=== PATIENT | male | born 1975 | race Caucasian/White ===

== ENCOUNTER 2017-02-16 21:55 | Emergency (ER) | payer MEDICAID ==
[~2017-02-16] VITALS: Ht 180.3 cm; Wt 76.0 kg
[2017-02-16 22:01] VITALS: BP 106/68
== END 2017-02-16 22:45 | disposition left against medical advice (07) ==
LOC: ED 22:20
DX: F10.20 Alcohol dependence, uncomplicated (principal); F11.20 Opioid dependence, uncomplicated; I10 Essential (primary) hypertension; F11.10 Opioid abuse, uncomplicated; Y90.9 Presence of alcohol in blood, level not specified
CPT/HCPCS: 99281

== ENCOUNTER 2017-05-05 04:10 | Emergency (ER) | payer MEDICAID ==
[~2017-05-05] VITALS: Ht 180.3 cm; Wt 70.4 kg
[2017-05-05] MEDS ORDERED: SODIUM CHLORIDE 0.9% 1,000 ML IV ONE (05:39)
[2017-05-05] MEDS ORDERED: ONDANSETRON 2MG/ML, 2ML ONE (05:55)
[2017-05-05] MEDS ORDERED: KETOROLAC 30 MG/1 ML ONE (05:55)
[2017-05-05] MEDS ORDERED: MORPHINE SULFATE 4 MG/ML, 1ML ONE (05:55)
[2017-05-05] MEDS ORDERED: MORPHINE SULFATE 4 MG/ML, 1ML IVPush PRN (06:00)
[2017-05-05] MEDS ORDERED: ONDANSETRON 2MG/ML, 2ML IVPush ONE (06:00)
[2017-05-05] MEDS ORDERED: KETOROLAC 30 MG/1 ML IVPush ONE (06:00)
[2017-05-05 06:24] VITALS: BP 135/96
[2017-05-05 06:38] LABS: BLOOD UREA NITROGEN 9 mg/dL (7-18)
== END 2017-05-05 08:04 | disposition home or self-care (01) ==
LOC: ED 05:06
DX: M94.0 Chondrocostal junction syndrome [Tietze] (principal); I10 Essential (primary) hypertension
CPT/HCPCS: 36415; 71010; 80048; 82040; 85025; 93005; 96361; 96374; 96375; 99285; J1885; J2405; J7030

== ENCOUNTER 2017-05-11 12:05 | Emergency (ER) | payer MEDICAID ==
[~2017-05-11] VITALS: Ht 180.3 cm; Wt 75.0 kg
[2017-05-11 14:59] VITALS: BP 103/72
== END 2017-05-11 15:46 | disposition home or self-care (01) ==
LOC: ED 15:41
DX: F10.229 Alcohol dependence with intoxication, unspecified (principal); I10 Essential (primary) hypertension
CPT/HCPCS: 36415; 70450; 80307; 99285

== ENCOUNTER 2017-05-12 01:03 | Emergency (ER) | payer MEDICAID ==
[~2017-05-12] VITALS: Ht 180.3 cm; Wt 78.0 kg
[2017-05-12 05:49] VITALS: BP 121/83
== END 2017-05-12 06:18 | disposition home or self-care (01) ==
LOC: ED 01:16
DX: F10.229 Alcohol dependence with intoxication, unspecified (principal); I10 Essential (primary) hypertension; W01.0XXA Fall on same level from slipping, tripping and stumbling without subsequent striking against object, initial encounter; Y93.89 Activity, other specified; Y92.410 Unspecified street and highway as the place of occurrence of the external cause; Y99.9 Unspecified external cause status
CPT/HCPCS: 70450

== ENCOUNTER 2017-05-12 18:57 | Emergency (ER) | payer MEDICAID ==
[~2017-05-12] VITALS: Ht 180.3 cm; Wt 69.6 kg
[2017-05-12] MEDS ORDERED: METOPROLOL TARTRATE 50 MG TABLET ONE (19:40)
[2017-05-12] MEDS ORDERED: METOPROLOL TARTRATE 50 MG TABLET PO ONE (20:00)
[2017-05-12 20:30] LABS: DAU SCREEN DISCLAIMER
[2017-05-12 20:32] LABS: BLOOD UREA NITROGEN 8 mg/dL (7-18)
[2017-05-12 20:35] LABS: ACETAMINOPHEN < 2 mcg/mL (10-30)
[2017-05-12 21:12] VITALS: BP 130/92
== END 2017-05-12 21:15 | disposition home or self-care (01) ==
LOC: ED 21:00
DX: F10.229 Alcohol dependence with intoxication, unspecified (principal); I10 Essential (primary) hypertension
CPT/HCPCS: 36415; 80048; 80307; 80329; 82040; 85025; 99284; G0480

== ENCOUNTER 2018-03-18 11:27 | Emergency (ER) | payer MEDICAID ==
[~2018-03-18] VITALS: Ht 180.3 cm; Wt 75.9 kg
[2018-03-18 11:35] VITALS: BP 152/100
[2018-03-18] MEDS ORDERED: KETOROLAC 30 MG/1 ML IM ONE (12:00)
[2018-03-18] MEDS ORDERED: DIAZEPAM 5 MG TABLET PO ONE (12:00)
== END 2018-03-18 12:46 | disposition home or self-care (01) ==
LOC: ED 12:35
DX: S50.02XA Contusion of left elbow, initial encounter (principal); I10 Essential (primary) hypertension; X50.1XXA Overexertion from prolonged static or awkward postures, initial encounter; Y93.89 Activity, other specified; Y92.89 Other specified places as the place of occurrence of the external cause; Y99.8 Other external cause status
CPT/HCPCS: 99284

== ENCOUNTER 2018-08-26 15:30 | Emergency (ER) | payer MEDICAID ==
[~2018-08-26] VITALS: Ht 177.8 cm; Wt 75.0 kg
[2018-08-26] MEDS ORDERED: ZIPRASIDONE 20 MG INJ IM ONE ×2 (15:38→16:00)
[2018-08-26 16:21] LABS: BASOPHILS # (AUTO) 0.03 x10^3/uL (0-0.1); BASOPHILS % (AUTO) 0 % (0-1); EOSINOPHILS # (AUTO) 0.04 x10^3/uL (0-0.4); EOSINOPHILS % (AUTO) 1 % (1-7); LYMPHOCYTES # (AUTO) 1.61 x10^3/uL (1-3.4); LYMPHOCYTES % (AUTO) 21 % (22-44); MD NO; MEAN CORPUSCULAR HEMOGLOBIN 30.2 pg (27.5-34.5); MEAN CORPUSCULAR HGB CONC 34.3 g/dL (33.2-36.2); MEAN CORPUSCULAR VOLUME 88.1 fL (81-97); MEAN PLATELET VOLUME 7.9 fL (7.4-10.4); MONOCYTES % (AUTO) 5 % (2-9); NEUTROPHILS # (AUTO) 5.79 x10^3/uL (1.8-6.8); NEUTROPHILS % (AUTO) 74 % (42-75); PLATELET COUNT 268 x10^3/uL (130-400); RED BLOOD COUNT 5.11 x10^6/uL (4.38-5.82); RED CELL DISTRIBUTION WIDTH 14.4 % (9.4-14.8)
[2018-08-26 16:32] LABS: ALBUMIN 3.9 g/dL (3.4-5.0); ANION GAP 10 mmol/L (5-15); CALCIUM 8.2 mg/dL (8.5-10.1); CHLORIDE 109 mmol/L (98-107); CREATININE 0.86 mg/dL (0.7-1.3)
[2018-08-26 16:36] LABS: SALICYLATE LEVEL 3.9 mg/dL (2.8-20.0)
[2018-08-26 16:38] LABS: ACETAMINOPHEN < 2 mcg/mL (10-30)
[2018-08-26 20:36] LABS: AMPHETAMINE SCREEN, URINE Negative (Negative); BARBITURATE SCREEN, URINE Negative (Negative); BENZODIAZEPINE SCREEN, URINE Negative (Negative); CANNABINOID SCREEN, URINE Negative (Negative); COCAINE SCREEN, URINE Negative (Negative); METHADONE SCREEN, URINE Negative (Negative); OPIATE SCREEN, URINE Negative (Negative)
[2018-08-27 00:38] VITALS: BP 132/76
== END 2018-08-27 05:34 | disposition home or self-care (01) ==
LOC: ED 18:34
DX: F10.229 Alcohol dependence with intoxication, unspecified (principal); I10 Essential (primary) hypertension; Y90.9 Presence of alcohol in blood, level not specified; Z72.9 Problem related to lifestyle, unspecified
CPT/HCPCS: 36415; 80048; 80307; 80329; 82040; 85025; 96372; 99284; J3486; G0480

== ENCOUNTER 2018-09-11 09:04 | Emergency (ER) | payer MEDICAID ==
[~2018-09-11] VITALS: Ht 180.3 cm; Wt 83.6 kg
[2018-09-11 10:54] LABS: AMPHETAMINE SCREEN, URINE Positive (Negative); BARBITURATE SCREEN, URINE Negative (Negative); BENZODIAZEPINE SCREEN, URINE Positive (Negative); CANNABINOID SCREEN, URINE Negative (Negative); COCAINE SCREEN, URINE Negative (Negative); METHADONE SCREEN, URINE Negative (Negative); OPIATE SCREEN, URINE Negative (Negative)
[2018-09-11 11:08] VITALS: BP 143/92
== END 2018-09-11 11:39 | disposition home or self-care (01) ==
LOC: ED 10:08
DX: S00.01XA Abrasion of scalp, initial encounter (principal); F10.129 Alcohol abuse with intoxication, unspecified; F15.10 Other stimulant abuse, uncomplicated; F13.10 Sedative, hypnotic or anxiolytic abuse, uncomplicated; I10 Essential (primary) hypertension; Z72.9 Problem related to lifestyle, unspecified; Y08.89XA Assault by other specified means, initial encounter; Y93.89 Activity, other specified; Y92.89 Other specified places as the place of occurrence of the external cause; Y99.8 Other external cause status; Y90.9 Presence of alcohol in blood, level not specified
CPT/HCPCS: 36415; 70450; 80307; 93005; 99285

== ENCOUNTER 2021-01-10 03:04 | Inpatient (IN) | payer MEDICAID ==
[~2021-01-10] VITALS: Ht 180.3 cm; Wt 80.7 kg
[2021-01-10 03:30] LABS: BASOPHILS % (AUTO) 0 % (0-1); EOSINOPHILS % (AUTO) 1 % (1-7); LYMPHOCYTES % (AUTO) 14 % (22-44); MEAN CORPUSCULAR HEMOGLOBIN 31.1 pg (27.5-34.5); MEAN CORPUSCULAR HGB CONC 34.3 g/dL (33.2-36.2); MEAN PLATELET VOLUME 8.6 fL (7.4-10.4); MONOCYTES % (AUTO) 8 % (2-9); NEUTROPHILS % (AUTO) 77 % (42-75); PLATELET COUNT 154 x10^3/uL (130-400); RED BLOOD COUNT 5.22 x10^6/uL (4.38-5.82); RED CELL DISTRIBUTION WIDTH 15.2 % (9.4-14.8)
[2021-01-10] MEDS ORDERED: ONDANSETRON 2MG/ML, 2ML IVPush ONE (03:30)
[2021-01-10] MEDS ORDERED: LORazepam 2 MG/ML, 1ML IVPush ONE (03:30)
[2021-01-10] MEDS ORDERED: SODIUM CHLORIDE 0.9% 1,000ML IVBOLUS ONE ×2 (03:30→04:30)
[2021-01-10 03:34] LABS: MD NO
[2021-01-10] MEDS ORDERED: ONDANSETRON 2MG/ML, 2ML ONE (03:35)
[2021-01-10] MEDS ORDERED: LORazepam 2 MG/ML, 1ML ONE (03:36)
[2021-01-10 03:40] LABS: ALANINE AMINOTRANSFERASE 193 U/L (12-78); ALBUMIN 3.6 g/dL (3.4-5.0); ANION GAP 8 mmol/L (5-15); CALCIUM 8.3 mg/dL (8.5-10.1); CHLORIDE 104 mmol/L (98-107); CREATININE 0.92 mg/dL (0.7-1.3)
[2021-01-10 03:44] LABS: ALKALINE PHOSPHATASE 157 U/L (45-117); BILIRUBIN,TOTAL 0.4 mg/dL (0.2-1.0); TOTAL PROTEIN 7.3 g/dL (6.4-8.2); TROPONIN I < 0.015 ng/mL (0.000-0.045)
--- NOTE | 2021-01-10 03:52 | NUR ---
PRECEPTOR RN: ENTERED ROOM WITH PRECEPTEE AND PT. SPO2 NOTED TO BE DROPPING BELOW 80% DESPITE O2 ADMIN VIA NC. PT. UNRESPONSIVE. NO PULSE NOTED AND CPR INITATED AND CODE BLUE CALLED(SEE CODE SHEET). PT. MOVED TO T3 FOR INTUBATION. REPORT TO HARLAN OSORIO.
[2021-01-10] MEDS ORDERED: ETOMIDATE 20 MG/10 ML ONE (04:09)
[2021-01-10] MEDS ORDERED: SUCCINYLCHOLINE 20 MG/ML, 10ML ONE (04:09)
[2021-01-10] MEDS ORDERED: CODE BLUE RESPONSE XX ONE (04:09)
--- NOTE | 2021-01-10 04:25 | NUR ---
SUMMARY NOTE, LATE ENTRY: UPON ARRIVAL TO ED EKG WAS COMPLETED AND PRESENTED TO DR. ALCARAZ WHO WAS IN TO EVAL PT. AND DISCUSS POC. CONTINUOUS PULSE OX, B/P, AND HEART MONITORS WERE PLACED ON ARRIVAL. PT. WAS NOTED TO BE IN SINUS TACH ON MONITOR AND ON EKG. PT. REPORTED RECENT RELAPSE WITH ETOH AFTER BEING SOBER FOR 6 MONTHS. LAST DRINK REPORTED TO BE 2200. PT. RECEIVED 4MG ZOFRAN IV EN ROUTE ACCOUNT COORDINATOR AND REPORTED IMPROVEMENT IN NAUSEA ON ARRIVAL. ON ARRIVAL PT. A&O X 4, STATED "MY LEGS FELT WEAK AND I WOKE UP WITH MY PANTS WET, I WENT OUT TO SMOKE A CIGARETTE AND I FELT WEAK SO I CALLED 911." NO TREMORS NOTED ON ASSESSMENT.
--- NOTE | 2021-01-10 04:27 | NUR ---
[address] AT 25CM AT THE LIP. PT MEDICATED PER DR ORDERS DURING PROCEDURE. PT CONFUSED AND TRYING TO GET OUT OF BED PRIOR TO ET TUBE AND MEDS.
[2021-01-10] MEDS ORDERED: PROMETHAZINE 25 MG/ML, 1ML IM PRN (04:30)
[2021-01-10] MEDS ORDERED: ETOMIDATE 20 MG/10 ML IVPush ONE (04:30)
[2021-01-10] MEDS ORDERED: MIDAZOLAM HCL 50 MG in SODIUM CHLORIDE 0.9% 40 ML IV PRN (04:30)
[2021-01-10] MEDS ORDERED: POLYETHYLENE GLYCOL 17 GM PACKET PO PRN (04:30)
[2021-01-10] MEDS ORDERED: hydrALAzine 20 MG/ML, 1ML IVPush PRN (04:30)
[2021-01-10] MEDS ORDERED: ONDANSETRON ODT 4 MG PO PRN (04:30)
[2021-01-10] MEDS ORDERED: SUCCINYLCHOLINE 20 MG/ML, 10ML IVPush ONE (04:30)
[2021-01-10] MEDS ORDERED: morphine SULFATE 10 MG/ML, 1ML IVPush PRN (04:30)
[2021-01-10] MEDS ORDERED: BISACODYL 10 MG SUPP PR PRN (04:30)
[2021-01-10] MEDS ORDERED: MIDAZOLAM 1 MG/ML, 5ML IVPush ONE (04:30)
[2021-01-10] MEDS ORDERED: DOCUSATE 100 MG CAPSULE PO PRN (04:30)
--- NOTE | 2021-01-10 04:37 | NUR ---
PT BITING ET TUBE, PT VERSED INCREASED PER PROVIDER VERBAL ORDER TO 7MG/HR VERSED
[2021-01-10] MEDS ORDERED: LISI-167 PO (04:44)
[2021-01-10] MEDS ORDERED: FENTANYL PF 100 MCG/2ML ONE (04:57)
[2021-01-10 04:59] LABS: MICROSCOPIC INDICATED
[2021-01-10] MEDS ORDERED: SODIUM CHLORIDE 0.9% 1,000 ML IV ONE (05:00)
[2021-01-10 05:02] LABS: FREE T4 (FREE THYROXINE) 0.86 ng/dL (0.76-1.46)
--- NOTE | 2021-01-10 05:02 | NUR ---
PROVIDER GAVE VERBAL ORDER FOR 100MCG OF FENTANYL TO BE PUSHED UP TO 2 TIMES WHILE PHAMACY MAKES FENTANYL DRIP. PT MEDICATED WITH 100MCG FENTANYL AT THIS TIME.
[2021-01-10] MEDS: FENTANYL PF 2,500 MCG in SODIUM CHLORIDE 0.9% 200 ML IV PRN ×2 (05:05→11:53)
[2021-01-10 05:06] LABS: AMPHETAMINE SCREEN, URINE Negative (Negative); BARBITURATE SCREEN, URINE Negative (Negative); BENZODIAZEPINE SCREEN, URINE Positive (Negative); CANNABINOID SCREEN, URINE Negative (Negative); COCAINE SCREEN, URINE Negative (Negative); METHADONE SCREEN, URINE Negative (Negative); OPIATE SCREEN, URINE Negative (Negative)
--- NOTE | 2021-01-10 06:00 | NUR ---
PT CARE TRANSFERED TO CCU BED [address] [facility]. PT WENT FROM ER TO CT THEN TO 543, PT TOLLERATED CT AND TRANSPORT WELL WITHOUT INCEDENT. RT, RN AND 2 TECHS TRANSPORTED PT TO CT AND 543
[2021-01-10] MEDS: MIDAZOLAM HCL 100 MG in SODIUM CHLORIDE 0.9% 80 ML IV PRN ×3 (06:11→20:41)
[2021-01-10] MEDS: THIAMINE 200 MG, FOLIC ACID 1 MG in D5%-0.9% NACL 1,000 ML IV SCH (06:27)
[2021-01-10] MEDS: HEPARIN 5,000 UNITS/ML, 1ML SQ SCH ×3 (06:27→22:50)
[2021-01-10] MEDS ORDERED: PROPOFOL 100 ML IV PRN ×2 (06:30→08:00)
[2021-01-10] MEDS ORDERED: LIDOCAINE-MPF 1%, 2ML ENDO PRN (08:00)
[2021-01-10] MEDS ORDERED: PHARMACY MAY ADJ FOR RENAL FX MC SCH (08:00)
[2021-01-10] MEDS: FAMOTIDINE 20 MG/2 ML IVPush SCH ×2 (08:29→20:41)
[2021-01-10] MEDS: FENTANYL PF 100 MCG/2ML IVPush PRN ×2 (11:40→13:02)
[2021-01-10] MEDS ORDERED: EPINEPHRINE SYRINGE 0.1 MG/ML, 10ML ONE (21:00)
[2021-01-10 23:31] VITALS: BP 110/67
[2021-01-11 04:37] LABS: BASOPHILS % (AUTO) 1 % (0-1); EOSINOPHILS % (AUTO) 2 % (1-7); LYMPHOCYTES % (AUTO) 21 % (22-44); MEAN CORPUSCULAR HEMOGLOBIN 31.1 pg (27.5-34.5); MEAN CORPUSCULAR HGB CONC 33.5 g/dL (33.2-36.2); MONOCYTES % (AUTO) 5 % (2-9); NEUTROPHILS % (AUTO) 71 % (42-75); PLATELET COUNT 114 x10^3/uL (130-400); RED BLOOD COUNT 4.24 x10^6/uL (4.38-5.82); RED CELL DISTRIBUTION WIDTH 15.9 % (9.4-14.8)
[2021-01-11 04:38] LABS: MD NO
[2021-01-11 04:42] LABS: ALBUMIN 2.6 g/dL (3.4-5.0); ANION GAP 5 mmol/L (5-15); CALCIUM 8.1 mg/dL (8.5-10.1); CHLORIDE 109 mmol/L (98-107)
[2021-01-11 04:48] LABS: ALANINE AMINOTRANSFERASE 138 U/L (12-78); ALKALINE PHOSPHATASE 131 U/L (45-117); CHOL/HDL RATIO 21.2; CHOLESTEROL, TOTAL 191 mg/dL (140-239); CREATININE 0.89 mg/dL (0.7-1.3); HDL CHOL % 5 % (26-37); HDL CHOLESTEROL (DIRECT) 9 mg/dL (40-60); TOTAL PROTEIN 5.8 g/dL (6.4-8.2); TRIGLYCERIDES 852 mg/dL (50-200)
[2021-01-11] MEDS: THIAMINE 200 MG, FOLIC ACID 1 MG in D5%-0.9% NACL 1,000 ML IV SCH (04:54)
[2021-01-11] MEDS: HEPARIN 5,000 UNITS/ML, 1ML SQ SCH ×3 (06:17→22:36)
[2021-01-11] MEDS: FAMOTIDINE 20 MG/2 ML IVPush SCH ×2 (09:40→20:24)
[2021-01-11] MEDS: MIDAZOLAM HCL 100 MG in SODIUM CHLORIDE 0.9% 80 ML IV PRN (09:40)
[2021-01-11] MEDS: FENTANYL PF 1,000 MCG in SODIUM CHLORIDE 0.9% 80 ML IV PRN ×3 (11:02→23:02)
[2021-01-11] MEDS: ACETAMINOPHEN 325 MG TABLET PO PRN (13:33)
[2021-01-12] MEDS: MIDAZOLAM HCL 100 MG in SODIUM CHLORIDE 0.9% 80 ML IV PRN (04:05)
[2021-01-12] MEDS: THIAMINE 200 MG, FOLIC ACID 1 MG in D5%-0.9% NACL 1,000 ML IV SCH (04:05)
[2021-01-12 04:36] LABS: BASOPHILS % (AUTO) 0 % (0-1); EOSINOPHILS % (AUTO) 3 % (1-7); LYMPHOCYTES % (AUTO) 15 % (22-44); MEAN CORPUSCULAR HGB CONC 33.4 g/dL (33.2-36.2); MEAN PLATELET VOLUME 8.6 fL (7.4-10.4); MONOCYTES % (AUTO) 7 % (2-9); NEUTROPHILS % (AUTO) 75 % (42-75); PLATELET COUNT 113 x10^3/uL (130-400); RED BLOOD COUNT 4.06 x10^6/uL (4.38-5.82); RED CELL DISTRIBUTION WIDTH 15.6 % (9.4-14.8)
[2021-01-12 04:37] LABS: MD NO
[2021-01-12] MEDS: FENTANYL PF 1,000 MCG in SODIUM CHLORIDE 0.9% 80 ML IV PRN (05:09)
[2021-01-12] MEDS: HEPARIN 5,000 UNITS/ML, 1ML SQ SCH ×3 (05:11→21:52)
[2021-01-12 07:26] LABS: ALANINE AMINOTRANSFERASE 108 U/L (12-78); ALBUMIN 2.6 g/dL (3.4-5.0); ANION GAP 9 mmol/L (5-15); CHLORIDE 109 mmol/L (98-107); CREATININE 0.96 mg/dL (0.7-1.3)
[2021-01-12 07:28] LABS: ALKALINE PHOSPHATASE 121 U/L (45-117); BILIRUBIN,TOTAL 0.8 mg/dL (0.2-1.0); TOTAL PROTEIN 6.1 g/dL (6.4-8.2); TRIGLYCERIDES 663 mg/dL (50-200)
[2021-01-12] MEDS: DEXMEDETOMIDINE 400 MCG in SODIUM CHLORIDE 0.9% 96 ML IV PRN ×2 (09:26→13:02)
[2021-01-12] MEDS: FAMOTIDINE 20 MG/2 ML IVPush SCH ×2 (09:37→20:05)
[2021-01-12] MEDS: ACETAMINOPHEN 325 MG TABLET PO PRN ×2 (09:52→20:56)
--- NOTE | 2021-01-12 10:51 | NUR ---
Tube Feed:Promote 65 ml/hr on propofol, 75 ml/hr off propofol Addendum: 01/12/21 at [address] Amended: Links added.
[2021-01-12] MEDS: CEFTRIAXONE PMX 1GM/50ML 50 ML IV SCH (10:52)
[2021-01-12] MEDS: METRONIDAZOLE PMX 500MG/100ML 100 ML IV SCH ×2 (11:42→20:05)
[2021-01-13] MEDS: ACETAMINOPHEN 325 MG TABLET PO PRN ×2 (03:26→17:58)
[2021-01-13] MEDS: METRONIDAZOLE PMX 500MG/100ML 100 ML IV SCH ×3 (03:27→19:29)
[2021-01-13] MEDS: DEXMEDETOMIDINE 400 MCG in SODIUM CHLORIDE 0.9% 96 ML IV PRN ×4 (04:58→19:33)
[2021-01-13] MEDS: THIAMINE 200 MG, FOLIC ACID 1 MG in D5%-0.9% NACL 1,000 ML IV SCH (04:59)
[2021-01-13 05:16] LABS: BASOPHILS % (AUTO) 0 % (0-1); EOSINOPHILS % (AUTO) 1 % (1-7); LYMPHOCYTES % (AUTO) 7 % (22-44); MEAN CORPUSCULAR HEMOGLOBIN 30.8 pg (27.5-34.5); MEAN CORPUSCULAR HGB CONC 33.3 g/dL (33.2-36.2); MEAN PLATELET VOLUME 8.6 fL (7.4-10.4); MONOCYTES % (AUTO) 7 % (2-9); NEUTROPHILS % (AUTO) 86 % (42-75); PLATELET COUNT 137 x10^3/uL (130-400); RED BLOOD COUNT 4.19 x10^6/uL (4.38-5.82)
[2021-01-13 05:18] LABS: INTERNATIONAL NORMALIZED RATIO 1.23 (0.93-1.1); PROTHROMBIN TIME 13.1 Seconds (9.6-11.5)
[2021-01-13 05:21] LABS: ALBUMIN 2.5 g/dL (3.4-5.0); ANION GAP 5 mmol/L (5-15); CALCIUM 8.6 mg/dL (8.5-10.1); CHLORIDE 105 mmol/L (98-107)
[2021-01-13 05:25] LABS: ALANINE AMINOTRANSFERASE 77 U/L (12-78); ALKALINE PHOSPHATASE 119 U/L (45-117); BILIRUBIN,TOTAL 1.1 mg/dL (0.2-1.0); CREATININE 0.73 mg/dL (0.7-1.3); TOTAL PROTEIN 6.6 g/dL (6.4-8.2); TRIGLYCERIDES 437 mg/dL (50-200)
[2021-01-13] MEDS: HEPARIN 5,000 UNITS/ML, 1ML SQ SCH ×2 (05:45→15:13)
[2021-01-13 05:53] LABS: MD SCAN
[2021-01-13] MEDS: FAMOTIDINE 20 MG/2 ML IVPush SCH ×2 (08:25→20:02)
[2021-01-13] MEDS ORDERED: FUROSEMIDE 40 MG/4 ML IV SCH (09:00)
[2021-01-13] MEDS: CEFTRIAXONE PMX 1GM/50ML 50 ML IV SCH (10:18)
[2021-01-13] MEDS ORDERED: ZIPRASIDONE 20 MG INJ IM PRN (10:30)
[2021-01-13] MEDS: QUETIAPINE 25MG TABLET PO SCH ×2 (10:36→17:58)
[2021-01-13] MEDS: FENTANYL PF 100 MCG/2ML IVPush PRN ×4 (19:32→20:12)
[2021-01-14] MEDS: HEPARIN 5,000 UNITS/ML, 1ML SQ SCH ×3 (00:04→16:07)
[2021-01-14] MEDS: QUETIAPINE 25MG TABLET PO SCH (02:30)
[2021-01-14 04:48] LABS: BASOPHILS % (AUTO) 0 % (0-1); EOSINOPHILS % (AUTO) 2 % (1-7); LYMPHOCYTES % (AUTO) 12 % (22-44); MEAN CORPUSCULAR HEMOGLOBIN 31.1 pg (27.5-34.5); MEAN CORPUSCULAR HGB CONC 33.5 g/dL (33.2-36.2); MEAN PLATELET VOLUME 8.8 fL (7.4-10.4); MONOCYTES % (AUTO) 9 % (2-9); NEUTROPHILS % (AUTO) 77 % (42-75); PLATELET COUNT 165 x10^3/uL (130-400); RED BLOOD COUNT 4.36 x10^6/uL (4.38-5.82); RED CELL DISTRIBUTION WIDTH 15.2 % (9.4-14.8)
[2021-01-14 04:55] LABS: MD NO
[2021-01-14] MEDS: THIAMINE 200 MG, FOLIC ACID 1 MG in D5%-0.9% NACL 1,000 ML IV SCH (05:10)
[2021-01-14] MEDS: METRONIDAZOLE PMX 500MG/100ML 100 ML IV SCH ×3 (05:10→20:13)
[2021-01-14 09:08] VITALS: BP 123/81
[2021-01-14] MEDS: CEFTRIAXONE PMX 1GM/50ML 50 ML IV SCH (11:12)
[2021-01-14] MEDS: OXYcodone IR 5MG TABLET PO PRN ×2 (12:48→21:31)
[2021-01-14 13:27] VITALS: BP 117/74
[2021-01-14 19:49] VITALS: BP 147/98
[2021-01-14] MEDS: ACETAMINOPHEN 325 MG TABLET PO PRN (21:29)
[2021-01-15] MEDS: HEPARIN 5,000 UNITS/ML, 1ML SQ SCH ×4 (00:06→23:51)
[2021-01-15] MEDS: ONDANSETRON 2MG/ML, 2ML IVPush PRN ×3 (00:09→11:59)
[2021-01-15 00:56] VITALS: BP 137/88
[2021-01-15] MEDS: METRONIDAZOLE PMX 500MG/100ML 100 ML IV SCH ×3 (03:35→20:16)
[2021-01-15] MEDS: ACETAMINOPHEN 325 MG TABLET PO PRN ×3 (03:35→21:28)
[2021-01-15] MEDS: THIAMINE 200 MG, FOLIC ACID 1 MG in D5%-0.9% NACL 1,000 ML IV SCH (05:44)
[2021-01-15 05:52] LABS: ANION GAP 6 mmol/L (5-15); CALCIUM 8.4 mg/dL (8.5-10.1); CHLORIDE 102 mmol/L (98-107)
[2021-01-15 06:52] VITALS: BP 144/90
[2021-01-15] MEDS ORDERED: POTASSIUM CHLORIDE 20 MEQ TAB.ER.PRT PO SCH (08:00)
[2021-01-15 09:12] VITALS: BP 155/94
[2021-01-15 09:43] LABS: TROPONIN I < 0.015 ng/mL (0.000-0.045)
[2021-01-15] MEDS: CEFTRIAXONE PMX 1GM/50ML 50 ML IV SCH (11:07)
[2021-01-15 12:15] VITALS: BP 149/99
[2021-01-15] MEDS ORDERED: MAALOX/HYOSCYAMINE/LIDOCAINE 45 ML BTL PO ONE (13:30)
[2021-01-15] MEDS: OXYcodone IR 5MG TABLET PO PRN ×2 (15:36→21:30)
[2021-01-15 15:49] LABS: TROPONIN I < 0.015 ng/mL (0.000-0.045)
[2021-01-15 18:52] VITALS: BP 138/94
[2021-01-15] MEDS: MELATONIN 5 MG TABLET PO PRN ×2 (20:17→23:51)
[2021-01-15 21:40] LABS: TROPONIN I < 0.015 ng/mL (0.000-0.045)
[2021-01-16 02:00] VITALS: BP 150/104
[2021-01-16] MEDS: METRONIDAZOLE PMX 500MG/100ML 100 ML IV SCH ×2 (05:30→11:53)
[2021-01-16] MEDS: OXYcodone IR 5MG TABLET PO PRN (05:36)
[2021-01-16 05:39] LABS: ANION GAP 5 mmol/L (5-15); CALCIUM 8.5 mg/dL (8.5-10.1); CHLORIDE 106 mmol/L (98-107)
[2021-01-16 05:43] LABS: CREATININE 0.62 mg/dL (0.7-1.3); TRIGLYCERIDES 242 mg/dL (50-200)
[2021-01-16 06:35] VITALS: BP 149/87
[2021-01-16] MEDS: THIAMINE 200 MG, FOLIC ACID 1 MG in D5%-0.9% NACL 1,000 ML IV SCH (06:54)
[2021-01-16] MEDS: HEPARIN 5,000 UNITS/ML, 1ML SQ SCH ×2 (09:01→15:54)
[2021-01-16] MEDS: CEFTRIAXONE PMX 1GM/50ML 50 ML IV SCH (10:41)
[2021-01-16 12:35] VITALS: BP 146/97
[2021-01-16] MEDS ORDERED: AMOX1TAB61 PO (13:28)
[2021-01-16] MEDS: ACETAMINOPHEN 325 MG TABLET PO PRN (14:26)
== END 2021-01-16 16:30 | disposition home or self-care (01) | DRG 208 ==
LOC: ED 03:50 → EDIP 04:36 → CCU 05:51 → 4NE 01-14 09:00 → 5SO 01-15 11:47 → DCLOUNGE 01-16 16:14
PROVIDERS: ADMIT Internal Medicine; ATTEND Internal Medicine
PROC: 0BH17EZ Insertion of Endotracheal Airway into Trachea, Via Natural or Artificial Opening (ICD-10-PCS; principal; 2021-01-10)
PROC: 5A1945Z Respiratory Ventilation, 24-96 Consecutive Hours (ICD-10-PCS; 2021-01-10)
DX: J96.01 Acute respiratory failure with hypoxia (principal); G93.41 Metabolic encephalopathy; I46.9 Cardiac arrest, cause unspecified; J69.0 Pneumonitis due to inhalation of food and vomit; F10.231 Alcohol dependence with withdrawal delirium; G40.901 Epilepsy, unspecified, not intractable, with status epilepticus; G93.89 Other specified disorders of brain; I10 Essential (primary) hypertension; K21.9 Gastro-esophageal reflux disease without esophagitis; K70.10 Alcoholic hepatitis without ascites; E78.1 Pure hyperglyceridemia; E86.0 Dehydration; F12.90 Cannabis use, unspecified, uncomplicated; F43.10 Post-traumatic stress disorder, unspecified; Z79.899 Other long term (current) drug therapy; Z79.891 Long term (current) use of opiate analgesic; Z79.01 Long term (current) use of anticoagulants; Z88.8 Allergy status to other drugs, medicaments and biological substances
CPT/HCPCS: 36415; 36600; 74018; 96374; 96375; 99285; J7042; 70450; 71045; 80048; 80053; 80061; 80307; 80320; 81001; 82803; 83036; 83690; 83735; 84100; 84439; 84443; 84478; 84484; 85025; 85610; 87070; 87081; 87205; 93005; 94002; 94003; G0378; J0696; J1644; J1940; J2250; J2405; J2704; J3010; J3411; J3486; J7030; G0480; J0330

== ENCOUNTER 2021-03-10 10:46 | Emergency (ER) | payer MEDICAID ==
[~2021-03-10] VITALS: Ht 180.3 cm; Wt 80.0 kg
[~2021-03-10 10:46] MED LIST: AMOX1TAB61 PO; LISI-167 PO
--- NOTE | 2021-03-10 11:11 | NUR ---
PATIENT BIB EMS WITH CHIEF C/O ETOH. PER EMS PATIENT HAS BEEN DRINKING A PINT OF VODKA AND A TALL CAN OF BEER EVERYDAY FOR THE LAST WEEK. PATIENT SEEN YESTERDAY AT [facility] FOR THE SAME. PATIENT 84% ON RA WHEN EMS SHOWED UP, PLACED ON 2 LPM NC AND PATIENT UP TO 99%. VSS EN ROUTE, GIVEN 4 MG PO ZOFRAN EN ROUTE. UPON ASSESMENT PATIENT REPORTS HE HAS BEEN ON A BINGE OF DRINKING ALCOHOL FOR THE LAST WEEK, DRINKING 1 PINT OF VODKA PER DAY. DENIES SI/HI, NO OTHER COMPLAINTS. A&O, CONNECTED TO ALL MONITORS, VSS, SIDE RAILS UP X2, CALL LIGHT WITHIN REACH.
--- NOTE | 2021-03-10 11:24 | NUR ---
SEIZURE PRECAUTIONS IN PLACE.
[2021-03-10 12:04] VITALS: BP 120/76
== END 2021-03-10 13:02 | disposition home or self-care (01) ==
LOC: ED 11:37
DX: F10.229 Alcohol dependence with intoxication, unspecified (principal); I10 Essential (primary) hypertension; F17.200 Nicotine dependence, unspecified, uncomplicated; Y90.0 Blood alcohol level of less than 20 mg/100 ml
CPT/HCPCS: 99283

== ENCOUNTER 2021-03-25 15:25 | Emergency (ER) | payer MEDICAID ==
[~2021-03-25] VITALS: Ht 180.3 cm; Wt 80.0 kg
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
[2021-03-25 16:40] VITALS: BP 94/61
--- NOTE | 2021-03-25 16:41 | NUR ---
TASK RN NOTE: MONITORING DEVICES ATTACHED TO PT AGAIN AFTER HE DC'ED HIS IV, NC, BP CUFF, SPO2 AND CARDIAC MONITORING. PT APOLOGETIC. PT REORIENTED TO SURROUNDINGS AND ENCOURAGED BY RN TO REST.
--- NOTE | 2021-03-25 16:58 | NUR ---
PT LEFT AMA STATED "I JUST NEED TO GET OUT OF HERE BACK TO MY HOMIES". AMA PAPER SIGNED & IN CHART. PT WALKED TO ER CANOPY
== END 2021-03-25 17:00 | disposition left against medical advice (07) ==
LOC: ED 15:33
DX: S09.90XA Unspecified injury of head, initial encounter (principal); F10.120 Alcohol abuse with intoxication, uncomplicated; M54.2 Cervicalgia; R11.0 Nausea; I10 Essential (primary) hypertension; F17.210 Nicotine dependence, cigarettes, uncomplicated; W01.0XXA Fall on same level from slipping, tripping and stumbling without subsequent striking against object, initial encounter; Y93.89 Activity, other specified; Y92.89 Other specified places as the place of occurrence of the external cause; Y99.8 Other external cause status; Y90.0 Blood alcohol level of less than 20 mg/100 ml
CPT/HCPCS: 70450; 72125; 99406

== ENCOUNTER 2021-04-19 15:04 | Emergency (ER) | payer MEDICAID ==
[~2021-04-19] VITALS: Ht 180.3 cm; Wt 79.0 kg
[2021-04-19 16:03] LABS: ALBUMIN 3.6 g/dL (3.4-5.0); ANION GAP 6 mmol/L (5-15); CALCIUM 8.6 mg/dL (8.5-10.1); CHLORIDE 105 mmol/L (98-107); CREATININE 0.63 mg/dL (0.7-1.3)
[2021-04-19 16:24] LABS: BASOPHILS % (AUTO) 1 % (0-1); EOSINOPHILS % (AUTO) 0 % (1-7); LYMPHOCYTES % (AUTO) 37 % (22-44); MEAN CORPUSCULAR HGB CONC 34.2 g/dL (33.2-36.2); MEAN PLATELET VOLUME 8.3 fL (7.4-10.4); MONOCYTES % (AUTO) 8 % (2-9); NEUTROPHILS % (AUTO) 54 % (42-75); PLATELET COUNT 308 x10^3/uL (130-400); RED BLOOD COUNT 5.18 x10^6/uL (4.38-5.82); RED CELL DISTRIBUTION WIDTH 15.2 % (9.4-14.8)
--- NOTE | 2021-04-19 16:32 | NUR ---
mathematical engineering technician: Pt to room from lobby at this time.
[2021-04-19 17:19] VITALS: BP 168/117
[2021-04-19] MEDS ORDERED: SULFAMETH./TRIMETHOPRIM DS 800MG/160MG TABLET ONE (17:40)
[2021-04-19] MEDS ORDERED: DIPH,PERTUSS(ACELL),TET VAC/PF 0.5 ML IM-VACC ONE ×2 (17:41→18:00)
[2021-04-19] MEDS ORDERED: NEOSPORIN OINT. PKT 1 PACKET ONE ×2 (17:55→18:39)
[2021-04-19] MEDS ORDERED: SULFAMETH./TRIMETHOPRIM DS 800MG/160MG TABLET PO ONE (18:00)
--- NOTE | 2021-04-19 18:15 | NUR ---
DISCHARGE INSTRUCTIONS REVIEWED WITH PT. ALL QUESTIONS ANSWERED AT THIS TIME.
== END 2021-04-19 18:47 | disposition home or self-care (01) ==
LOC: ED 15:34
DX: S60.511A Abrasion of right hand, initial encounter (principal); F10.139 Alcohol abuse with withdrawal, unspecified; I10 Essential (primary) hypertension; Y90.0 Blood alcohol level of less than 20 mg/100 ml; V00.131A Fall from skateboard, initial encounter; Y93.51 Activity, roller skating (inline) and skateboarding; Y92.410 Unspecified street and highway as the place of occurrence of the external cause; Y99.8 Other external cause status
CPT/HCPCS: 36415; 80048; 82040; 85025; 90471; 90715

== ENCOUNTER 2021-04-30 12:35 | Emergency (ER) | payer MEDICAID ==
[~2021-04-30] VITALS: Ht 172.7 cm; Wt 80.0 kg
--- NOTE | 2021-04-30 12:48 | NUR ---
tech ed/woodshop teacher is at the bedside for assessment
[2021-04-30 13:08] LABS: BASOPHILS % (AUTO) 1 % (0-1); EOSINOPHILS % (AUTO) 1 % (1-7); LYMPHOCYTES % (AUTO) 34 % (22-44); MEAN CORPUSCULAR HEMOGLOBIN 32.5 pg (27.0-34.8); MEAN CORPUSCULAR HGB CONC 34.6 g/dL (33.2-36.2); MEAN PLATELET VOLUME 8.7 fL (7.4-10.4); MONOCYTES % (AUTO) 10 % (2-9); NEUTROPHILS % (AUTO) 55 % (42-75); PLATELET COUNT 309 x10^3/uL (130-400); RED BLOOD COUNT 4.93 x10^6/uL (3.82-5.82); RED CELL DISTRIBUTION WIDTH 15.2 % (9.4-14.8)
--- NOTE | 2021-04-30 13:11 | NUR ---
FIRST CONTACT WITH PATIENT: O2 DROPPING TO 84%, PATIENT PLACED ON 2 LPM NC, O2 SATURATION UP TO 96%, CONNECTED TO MOISTURE TESTER, VSS, ANGY, PATIENT LAYING IN GURNEY WITH EYES CLOSED, SIDE RAILS UP X2.
[2021-04-30 13:12] LABS: ALANINE AMINOTRANSFERASE 38 U/L (12-78); ALBUMIN 3.7 g/dL (3.4-5.0); ANION GAP 8 mmol/L (5-15); CHLORIDE 110 mmol/L (98-107); CREATININE 0.68 mg/dL (0.55-1.3); SALICYLATE LEVEL 2.9 mg/dL (2.8-20.0)
[2021-04-30 13:16] LABS: ALKALINE PHOSPHATASE 98 U/L (45-117); BILIRUBIN,TOTAL 0.1 mg/dL (0.2-1.0); TOTAL PROTEIN 7.5 g/dL (6.4-8.2)
--- NOTE | 2021-04-30 13:35 | NUR ---
PATIENT LAYING IN GURNEY, PULLED OFF PULSE OX AND NASAL CANNULA, OTHER VSS, RESP EVEN AND UNLABORED, SIDE RAILS UP X2, CALL LIGHT WITHIN REACH.
--- NOTE | 2021-04-30 14:20 | NUR ---
I AM ASSUMING CARE OF THIS PT FROM MICHELLE (rn) AT THIS TIME. SBAR WAS COMPLETED AT THE BEDSIDE. I AM FAMILIAR W THIS PT, I CHECKED HIM IN FROM EMS.
[2021-04-30] MEDS ORDERED: LIDOCAINE-MPF 1%, 5ML ONE (14:30)
--- NOTE | 2021-04-30 14:30 | NUR ---
FORTUNATO X8 PLACED IN POSTERIOR SCALP
--- NOTE | 2021-04-30 14:35 | NUR ---
C COLLAR IN PLACE POST FALL
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
--- NOTE | 2021-04-30 14:40 | NUR ---
PT TO CT W MYSELF AND TECH X2.
--- NOTE | 2021-04-30 14:45 | NUR ---
PT RETURNED FROM CT W MYSELF AND TECH X2. HE TOLERATED THE IMAGING WITHOUT RESISTANCE.
--- NOTE | 2021-04-30 15:00 | NUR ---
PT UNABLE TO MAINTAIN O2 LEVELS >90% ON ROOM AIR. SIMPLE MASK APPLIED FOR COMFORT, AND TO AID W INTERMITTENT HYPOXIA
--- NOTE | 2021-04-30 15:17 | NUR ---
C COLLAR REMOVED, AND BACKBOARD REMOVED PER ERP REQUEST FOR A POSITION OF COMFORT.
[2021-04-30] MEDS ORDERED: DIPH,PERTUSS(ACELL),TET VAC/PF 0.5 ML IM-VACC ONE ×2 (15:30→16:36)
--- NOTE | 2021-04-30 15:38 | NUR ---
PT IS IMPROVING HIS LEVEL OF CONSCIOUSNESS. HE IS SPEAKING, AND ASKING QUESTIONS ABOUT ORIENTATION. HE IS BREATHING WITH EQUAL CHEST RISE AND FALL ON ROOM AIR.
[2021-04-30 15:41] LABS: INTERNATIONAL NORMALIZED RATIO 0.99 (0.93-1.1); PROTHROMBIN TIME 10.6 Seconds (9.6-11.5)
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
[2021-04-30] MEDS ORDERED: SODIUM CHLORIDE 0.9% 1,000ML IVBOLUS ONE (16:00)
--- NOTE | 2021-04-30 16:07 | NUR ---
PT IS REQUESTING TO D/C. HE IS OBVIOUSLY STILL GROSSLY INTOXICATED. VERBAL REDIRECTION UTILIZED.
[2021-04-30 16:33] LABS: AMPHETAMINE SCREEN, URINE Negative (Negative); BARBITURATE SCREEN, URINE Negative (Negative)
[2021-04-30 16:34] LABS: BENZODIAZEPINE SCREEN, URINE Negative (Negative); CANNABINOID SCREEN, URINE Negative (Negative); COCAINE SCREEN, URINE Negative (Negative); METHADONE SCREEN, URINE Negative (Negative); OPIATE SCREEN, URINE Negative (Negative)
--- NOTE | 2021-04-30 16:43 | NUR ---
PT APOLOGIZING FOR POOR BEHAVIOR. INCREASING COMPLIANCE, AND UPPER RESTRAINTS REMOVED
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
--- NOTE | 2021-04-30 17:26 | NUR ---
MEALTRAY DELIVERED AND APPRECIATED. RESTRAINTS REMOVED FOR EATING. PT IS COMPLIANT THUS FAR. SPECIAL THANKS TO THE BAND "SUBLIME." LISTENING TO THEIR SELF-TITLED ALBUM PER PT REQUEST. THEIR MUSIC HAS HELPED AID IN THE CARE OF THIS PT TREMENDOUSLY.
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
[2021-04-30 17:45] VITALS: BP 119/87
--- NOTE | 2021-04-30 17:56 | NUR ---
AFTER INCESSANT INSISTENCE, I DISCONNECTED THIS PT FROM MONITORS, AND ALLOWED HIM TO ATTEMPT TO AMBULATE. HE IS WOBBLY AND UNABLE TO AMBULATE WITH A STEADY GAIT. I ASSISTED HIM BACK TO BED, RECONNECETED HIM TO MONITORS AND PROVIDED FURTHER EDUCATION IN REGARD TO HIS PLan of care. NO RESTRAINTS IN PLACE, HOWEVER HE IS REMOVING ATTACHED MONITOR LEADS, CABLES I WRITE THIS NOTE.
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
--- NOTE | 2021-04-30 18:26 | NUR ---
PT INSISTED UPON ELOPING. HE DEMONSTRATED STRAIGHT LINE WALKING FOR MYSELF AND ERPA. HE DRESSED HISSELF, AND WALKED OUT THE FRONT DOOR. PIV X2 WERE REMOVED.
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
== END 2021-04-30 18:42 | disposition home or self-care (01) ==
LOC: EDSEX 12:35 → MERGE 12:35 → EDBD 12:35 → ED 18:31
DX: S01.01XA Laceration without foreign body of scalp, initial encounter (principal); F10.229 Alcohol dependence with intoxication, unspecified; I10 Essential (primary) hypertension; F17.210 Nicotine dependence, cigarettes, uncomplicated; W01.0XXA Fall on same level from slipping, tripping and stumbling without subsequent striking against object, initial encounter; Y93.89 Activity, other specified; Y92.89 Other specified places as the place of occurrence of the external cause; Y99.8 Other external cause status; Y90.0 Blood alcohol level of less than 20 mg/100 ml
CPT/HCPCS: 12001; 36415; 70450; 72125; 80053; 80299; 80307; 80320; 85025; 85610; 85730; 90471; 90715; 93005; 99285; 99406; J7030; 80329; G0480

== ENCOUNTER 2021-05-16 08:03 | Emergency (ER) | payer MEDICAID ==
[~2021-05-16] VITALS: Ht 175.3 cm; Wt 80.0 kg
--- NOTE | 2021-05-16 08:17 | NUR ---
SCOTT TO DETOX OFF OF ALCOHOL. LAST DRINK 1 HOUR AGO. PT WAS AT [facility] 3 DAYS AGO BUT LEFT AND HAS BEEN DRINKING "BOTTLES OF VODKA" SINCE. PT TO BED WITH STEADY GAIT. ATTACHED TO MONITORS. VSS. NADN. ALIYAH BARRIGA TO BEDSIDE FOR EVALUATION.
[2021-05-16] MEDS ORDERED: THIAMINE 100MG TABLET PO ONE (08:30)
[2021-05-16] MEDS ORDERED: SODIUM CHLORIDE 0.9% 1,000ML IVBOLUS ONE (08:30)
--- NOTE | 2021-05-16 08:38 | NUR ---
REPORT FROM HARLAN PANCHAL. ASSUMED CARE OF PT AT THIS TIME
[2021-05-16] MEDS ORDERED: THIAMINE 100MG TABLET ONE (08:41)
[2021-05-16 08:51] LABS: ALANINE AMINOTRANSFERASE 71 U/L (12-78); ALBUMIN 3.9 g/dL (3.4-5.0); ANION GAP 5 mmol/L (5-15); CALCIUM 8.7 mg/dL (8.5-10.1); CHLORIDE 104 mmol/L (98-107); CREATININE 0.77 mg/dL (0.7-1.3)
--- NOTE | 2021-05-16 08:53 | NUR ---
PIV PLACED, LABS DRAWN, PT MEDICATED PER EMAR. NADN/VSS. CALL LIGHT WITHIN REACH. BED IN LOWEST POSITION, BED RAILS UP X2. MONITORS IN PLACE
[2021-05-16 08:55] LABS: ALKALINE PHOSPHATASE 147 U/L (45-117); BASOPHILS % (AUTO) 0 % (0-1); BILIRUBIN,TOTAL 0.3 mg/dL (0.2-1.0); EOSINOPHILS % (AUTO) 0 % (1-7); LYMPHOCYTES % (AUTO) 37 % (22-44); MEAN CORPUSCULAR HEMOGLOBIN 32.2 pg (27.5-34.5); MEAN CORPUSCULAR HGB CONC 34.3 g/dL (33.2-36.2); MEAN PLATELET VOLUME 7.9 fL (7.4-10.4); MONOCYTES % (AUTO) 7 % (2-9); NEUTROPHILS % (AUTO) 55 % (42-75); PLATELET COUNT 228 x10^3/uL (130-400); RED BLOOD COUNT 5.65 x10^6/uL (4.38-5.82); RED CELL DISTRIBUTION WIDTH 14.9 % (9.4-14.8); TOTAL PROTEIN 8.3 g/dL (6.4-8.2)
[2021-05-16 09:44] VITALS: BP 129/88
--- NOTE | 2021-05-16 09:45 | NUR ---
Patient given discharge instructions and they have confirmed that they understand the instructions. Patient ambulatory with steady gait.
== END 2021-05-16 09:46 | disposition home or self-care (01) ==
LOC: ED 08:17
DX: F10.220 Alcohol dependence with intoxication, uncomplicated (principal); I10 Essential (primary) hypertension; Y90.0 Blood alcohol level of less than 20 mg/100 ml
CPT/HCPCS: 36415; 80053; 80320; 85025; 96360; 99283; J7030; Q0177; G0480